=== PATIENT | female | born 1940 ===

== ENCOUNTER 2020-11-12 12:33 | Emergency (ER) | payer OTHER ==
[~2020-11-12] VITALS: Ht 157.5 cm; Wt 66.5 kg
[2020-11-12] MEDS ORDERED: DOXA1TAB6 PO (13:32)
[2020-11-12] MEDS ORDERED: FAMO20 PO (13:32)
[2020-11-12] MEDS ORDERED: CEFP100T8 PO (13:32)
[2020-11-12] MEDS ORDERED: ASPI81TA87 PO (13:32)
[2020-11-12] MEDS ORDERED: CYCL25CA6 PO (13:32)
[2020-11-12] MEDS ORDERED: OLAN2.5T29 PO (13:40)
[2020-11-12] MEDS ORDERED: MUPI1OIN5 TP (13:40)
[2020-11-12] MEDS ORDERED: SIMV-261 PO (13:40)
[2020-11-12] MEDS ORDERED: NITR0.4T52 SL (13:40)
[2020-11-12] MEDS ORDERED: TRIA60LO13 TP (13:40)
[2020-11-12] MEDS ORDERED: TRAZ-257 PO (13:40)
[2020-11-12] MEDS ORDERED: LEVE500T53 PO (13:40)
[2020-11-12] MEDS ORDERED: PERM60CR19 TP (13:40)
[2020-11-12] MEDS ORDERED: LISI-893 PO (13:40)
[2020-11-12] MEDS ORDERED: LEVO75 PO (13:40)
[2020-11-12] MEDS ORDERED: SENN8.6T90 PO (13:40)
[2020-11-12] MEDS ORDERED: MEMA5 PO (13:40)
[2020-11-12] MEDS ORDERED: QUET25TA PO (13:40)
[2020-11-12] MEDS ORDERED: LACT1CAP58 PO (13:40)
[2020-11-12] MEDS ORDERED: SERT-158 PO (13:40)
[2020-11-12 15:30] VITALS: BP 136/79
== END 2020-11-12 17:43 ==
LOC: EMS 12:37
DX: F03.90 Unspecified dementia, unspecified severity, without behavioral disturbance, psychotic disturbance, mood disturbance, and anxiety (principal); I10 Essential (primary) hypertension; Z88.0 Allergy status to penicillin; Z88.2 Allergy status to sulfonamides; Z88.8 Allergy status to other drugs, medicaments and biological substances
CPT/HCPCS: 99283; Z7502